=== PATIENT | female | born 1995 | race Caucasian/White ===

== ENCOUNTER 2023-01-24 16:24 | Emergency (ER) | payer BC ==
[2023-01-24 17:19] VITALS: TEMP 99.5
[2023-01-24] MEDS ORDERED: KETOROLAC 15 MG/ML 1 ML VIAL IVP STA (17:50)
[2023-01-24] MEDS ORDERED: SODIUM CHLORIDE 0.9% 1,000 ML IV STA ×2 (17:55)
--- NOTE | 2023-01-24 17:55 | ED ---
General Adult HPI - General Chief complaint: Dizziness Stated complaint: Chest pain,right arm pain Time Seen by Provider: 01/24/23 17:42 Source: patient Mode of arrival: ambulatory Limitations: no limitations - History of Present Illness Initial comments: This 27-year-old female presents with complaint of some right-sided chest pain. She was describes as sharp in nature. It is pleuritic as well. She states that it radiates down her right arm at times. She feels slightly short of breath at times. She states that her heart rate has been elevated at times as well. She does relate a history of atrial fibrillation. She states that she feels dizzy at times. There's been no fevers but she has felt chills at times. No leg pain or swelling. She denies any history of DVT or PE. She does have exercise- induced asthma otherwise denies any pulmonary problems in the past. No other history of cardiac disease. She denies any possibility of . No other complaints or modifying factors. - Related Data Allergies Allergy/AdvReac Type Severity Reaction Status Date / Time No Known Allergies Allergy Verified 01/24/23 17:06 Review of Systems ROS Statement: Those systems with pertinent positive or pertinent negative responses have been documented in the HPI. ROS Other: All systems not noted in ROS Statement are negative. Past Medical History Past Medical History: Atrial Fibrillation History of Any Multi-Drug Resistant Organisms: None Reported Additional Past Surgical History / Comment(s): ACL surgery. Past Psychological History: Anxiety, Depression Smoking Status: Never smoker Past Alcohol Use History: Rare Past Drug Use History: Marijuana General Exam - General Exam Comments Initial Comments: GENERAL: The patient is well nourished and well hydrated. VITAL SIGNS: Heart rate, blood pressure, respiratory rate reviewed as recorded in nurse's notes. EYES: Pupils are round and reactive. Extraocular movements are intact. No conjunctival / lid redness or swelling. ENT: No external evidence of injury, swelling, or ecchymosis. Airway is patent. Throat is clear. NECK: Nontender. No swelling or evidence of injury. No subcutaneous emphysema. Trachea is midline. No thyroid mass. HEART: Slightly tachycardic heart rate.. Good peripheral pulses. LUNGS/CHEST: Breath sounds clear and equal bilaterally. No rales, rhonchi, or wheezes. No ecchymosis, subcutaneous emphysema, or tenderness. ABDOMEN: Abdomen soft without tenderness. No palpable masses or organomegaly. No peritoneal signs. No abdominal wall swelling or ecchymosis. EXTREMITIES: No extremity tenderness. Normal muscle tone and function. No thoracolumbar tenderness. NEUROLOGIC: Sensation is grossly intact. Cranial nerve exam reveals face is symmetrical, tongue is midline, speech is clear. SKIN: No abrasions or ecchymosis is noted. No induration or masses noted. PSYCHIATRIC: Alert and oriented. Appropriate behavior and judgment. Limitations: no limitations Course Vital Signs 01/24/23 01/24/23 01/24/23 17:03 18:17 19:00 Temperature 99.5 F Pulse Rate 116 H 115 H 112 H Respiratory 18 18 12 Rate Blood Pressure 138/86 98/59 98/59 O2 Sat by Pulse 100 98 Oximetry 01/24/23 20:00 Temperature Pulse Rate 98 Respiratory 20 Rate Blood Pressure 100/66 O2 Sat by Pulse 98 Oximetry Medical Decision Making - Medical Decision Making The patient was seen and examined. All diagnostics are reviewed. An IV is established patient is placed on a monitor and storage bin tender. Slight tachycardia is noted with regular rhythm. The EKG shows a sinus tachycardia at a heart rate of 112. There is no acute ST or T wave changes noted per my interpretation. Intervals are normal. She does receive Toradol intravenously for the chest pain. The laboratory does show a slight leukocytosis but otherwise no acute abnormalities. The chest x-ray does not show any acute process per my interpretation. Addis pt. sent in by a medical professional or institution ([facility]ena[facility], BUILDING [employer]LLUMINATING ENGINEER, urgent care, hospital, or skilled nursing...) When possible be specific @ -[No] Did you speak to anyone other than the patient for history (EMS, parent, family, police, friend...)? What history was obtained from this source @ -[No] Did you review nursing and triage notes (agree or disagree)? Why? @ -[I reviewed and agree with nursing and triage notes] Were old charts reviewed (outside hosp., previous admission, EMS record, old E KG, old radiological studies, urgent care reports/EKG's, skilled nursing records)? Report findings @ -Old records are reviewed. Differential Diagnosis (chest pain, altered mental status, abdominal pain women, abdominal pain men, vaginal bleeding, weakness, fever, dyspnea, syncope, headache, dizziness, GI bleed, back pain, seizure, CVA, palpatations, mental health, musculoskeletal)? @ -Pleuritis, pneumothorax, pneumonia, viral infection, musculoskeletal chest pain. EKG interpreted by me (3pts min.). @ -[As above] X-rays interpreted by me (1pt min.). @ -As above CT interpreted by me (1pt min.). @ -[None done] U/S interpreted by me (1pt. min.). @ -[None done] What testing was considered but not performed or refused? (CT, X-rays, U/S, labs)? Why? @ -[None] What meds were considered but not given or refused? Why? @ -[None] Did you discuss the management of the patient with other professionals (professionals i.e. , PA, BUILDING ILLUMINATING ENGINEER, lab, RT, psych nurse, group social worker, automobile inspector, teacher, access control officer, behavioral health case manager)? Give summary @ -[No] Was smoking cessation discussed for >3mins.? @ -[No] Was critical care preformed (if so, how long)? @ -[No] Were there social determinants of health that impacted care today? How? (Homelessness, low income, unemployed, alcoholism, drug addiction, transportation, low edu. Level, literacy, decrease access to med. care, senior care, rehab)? @ -[No] Was there de-escalation of care discussed even if they declined (Discuss DNR or withdrawal of care, Hospice)? DNR status @ -[No] What co-morbidities impacted this encounter? (DM, HTN, Smoking, COPD, CAD, Cancer, CVA, ARF, Chemo, Hep., AIDS, mental health diagnosis, sleep apnea, morbid obesity)? @ -Atrial fibrillation Was patient admitted / discharged? Hospital course, mention meds given and route, prescriptions, significant lab abnormalities, going to OR and other pertinent info. @ -Discharge, please see above. Undiagnosed new problem with uncertain prognosis? @ -[No] Drug Therapy requiring intensive monitoring for toxicity (Heparin, Nitro, Insulin, Cardizem)? @ -[No] Were any procedures done? @ -[No] Diagnosis/symptom? @ -Chest pain, pleuritis Acute, or Chronic, or Acute on Chronic? @ -Acute Uncomplicated (without systemic symptoms) or Complicated (systemic symptoms)? @ -Uncomplicated Side effects of treatment? @ -[No] Exacerbation, Progression, or Severe Exacerbation? @ -[No] Poses a threat to life or bodily function? How? (Chest pain, USA, CT, pneumonia, PE, COPD, DKA, ARF, appy, cholecystitis, CVA, Diverticulitis, Homicidal, Suicidal, threat to staff... and all critical care pts) @ -[No]e viral studies are negative. It is felt as though her symptomatology may be related to pleuritis. She is feeling improved on recheck. Close follow- up with primary care is recommended. Return parameters are discussed. - Lab Data Result diagrams: 01/24/23 18:19 01/24/23 18:19 Lab Results 01/24/23 01/24/23 01/24/23 Range/Units 17:08 18:19 18:19 WBC 16.1 H (3.8-10.6) k/uL RBC 4.15 (3.80-5.40) m/uL Hgb 12.5 (11.4-16.0) gm/dL Hct 37.9 (34.0-46.0) % MCV 91.2 (80.0-100.0) fL MCH 30.2 (25.0-35.0) pg MCHC 33.1 (31.0-37.0) g/dL RDW 12.9 (11.5-15.5) % Plt Count 404 (150-450) k/uL MPV 7.2 Neutrophils % 83 % Lymphocytes % 10 % Monocytes % 4 % Eosinophils % 0 % Basophils % 0 % Neutrophils # 13.4 H (1.3-7.7) k/uL Lymphocytes # 1.5 (1.0-4.8) k/uL Monocytes # 0.6 (0-1.0) k/uL Eosinophils # 0.1 (0-0.7) k/uL Basophils # 0.1 (0-0.2) k/uL PT 10.0 (10.0-12.5) sec INR 0.9 (<1.2) APTT 25.9 (22.0-30.0) sec D-Dimer 0.41 (<0.60) mg/L FEU Sodium (137-145) mmol/L Potassium (3.5-5.1) mmol/L Chloride (98-107) mmol/L Carbon Dioxide (22-30) mmol/L Anion Gap mmol/L BUN (7-17) mg/dL Creatinine (0.52-1.04) mg/dL Est GFR (CKD-EPI)AfAm (>60 ml/min/1.73 sqM) Est GFR (CKD-EPI)NonAf (>60 ml/min/1.73 sqM) Glucose (74-99) mg/dL Calcium (8.4-10.2) mg/dL Total Bilirubin (0.2-1.3) mg/dL AST (14-36) U/L ALT (4-34) U/L Alkaline Phosphatase (38-126) U/L Troponin I (0.000-0.034) ng/mL Total Protein (6.3-8.2) g/dL Albumin (3.5-5.0) g/dL Influenza Type A (PCR) Not Detected (Not Detectd) Influenza Type B (PCR) Not Detected (Not Detectd) RSV (PCR) Not Detected (Not Detectd) SARS-CoV-2 (PCR) Not Detected (Not Detectd) 01/24/23 01/24/23 Range/Units 18:19 18:19 WBC (3.8-10.6) k/uL RBC (3.80-5.40) m/uL Hgb (11.4-16.0) gm/dL Hct (34.0-46.0) % MCV (80.0-100.0) fL MCH (25.0-35.0) pg MCHC (31.0-37.0) g/dL RDW (11.5-15.5) % Plt Count (150-450) k/uL MPV Neutrophils % % Lymphocytes % % Monocytes % % Eosinophils % % Basophils % % Neutrophils # (1.3-7.7) k/uL Lymphocytes # (1.0-4.8) k/uL Monocytes # (0-1.0) k/uL Eosinophils # (0-0.7) k/uL Basophils # (0-0.2) k/uL PT (10.0-12.5) sec INR (<1.2) APTT (22.0-30.0) sec D-Dimer (<0.60) mg/L FEU Sodium 137 (137-145) mmol/L Potassium 3.7 (3.5-5.1) mmol/L Chloride 100 (98-107) mmol/L Carbon Dioxide 26 (22-30) mmol/L Anion Gap 11 mmol/L BUN 10 (7-17) mg/dL Creatinine 0.74 (0.52-1.04) mg/dL Est GFR (CKD-EPI)AfAm >90 (>60 ml/min/1.73 sqM) Est GFR (CKD-EPI)NonAf >90 (>60 ml/min/1.73 sqM) Glucose 113 H (74-99) mg/dL Calcium 9.3 (8.4-10.2) mg/dL Total Bilirubin 0.6 (0.2-1.3) mg/dL AST 22 (14-36) U/L ALT 19 (4-34) U/L Alkaline Phosphatase 98 (38-126) U/L Troponin I <0.012 (0.000-0.034) ng/mL Total Protein 7.9 (6.3-8.2) g/dL Albumin 4.2 (3.5-5.0) g/dL Influenza Type A (PCR) (Not Detectd) Influenza Type B (PCR) (Not Detectd) RSV (PCR) (Not Detectd) SARS-CoV-2 (PCR) (Not Detectd) Disposition Clinical Impression: Pleuritic chest pain, Sinus tachycardia, Dizziness, Pleuritis, History of atrial fibrillation Disposition: HOME SELF-CARE Condition: Good Instructions (If sedation given, give patient instructions): Pleurisy (ED) Additional Instructions: Please use Tylenol and/or Motrin if needed for pain. Please follow-up with your warp tension tester in the next 2-4 days. Is patient prescribed a controlled substance at d/c from ED?: No Referrals: Mu Abebe MD [Primary Care Provider] - 1-2 days Time of Disposition: 20:29
--- NOTE | 2023-01-24 18:05 | XR ---
EXAMINATION TYPE: XR chest 2V DATE OF EXAM: 01/24/2023 5:57 PM CLINICAL INDICATION:Female, 27 years old with history of chest wall pain; [facility] COMPARISON: None TECHNIQUE: XR chest 2V Frontal and lateral views of the chest. FINDINGS: Lungs/Pleura: There is no evidence of pleural effusion, focal consolidation, or pneumothorax. Pulmonary vascularity: Unremarkable. Heart/mediastinum: Cardiomediastinal silhouette is unremarkable. Musculoskeletal: No acute osseous pathology. IMPRESSION: No acute cardiopulmonary disease/process.
[2023-01-24 18:28] LABS: Basophils # (A) 0.1 k/uL (0-0.2); Basophils % (A) 0 %; Eosinophils # (A) 0.1 k/uL (0-0.7); Eosinophils % (A) 0 %; HCT 37.9 % (34.0-46.0); HGB 12.5 gm/dL (11.4-16.0); Lymphocytes # (A) 1.5 k/uL (1.0-4.8); Lymphocytes % (A) 10 %; MCH 30.2 pg (25.0-35.0); MCHC 33.1 g/dL (31.0-37.0); MCV 91.2 fL (80.0-100.0); Mean Platelet Volume 7.2; Monocytes # (A) 0.6 k/uL (0-1.0); Monocytes % (A) 4 %; Neutrophils # (A) 13.4 k/uL (1.3-7.7); Neutrophils % (A) 83 %; Platelet Count 404 k/uL (150-450); RBC 4.15 m/uL (3.80-5.40); RDW 12.9 % (11.5-15.5); WBC 16.1 k/uL (3.8-10.6)
[2023-01-24 18:36] LABS: ALT 19 U/L (4-34); AST 22 U/L (14-36); African American GFR (CKD) >90 (>60 ml/min/1.73 sqM); Albumin 4.2 g/dL (3.5-5.0); Alkaline Phosphatase 98 U/L (38-126); Anion Gap 11 mmol/L; Blood Urea Nitrogen 10 mg/dL (7-17); Calcium 9.3 mg/dL (8.4-10.2); Carbon Dioxide 26 mmol/L (22-30); Chloride 100 mmol/L (98-107); Glucose 113 mg/dL (74-99); Non-African American GFR(CKD) >90 (>60 ml/min/1.73 sqM); Potassium 3.7 mmol/L (3.5-5.1); Sodium 137 mmol/L (137-145); Total Bilirubin 0.6 mg/dL (0.2-1.3); Total Protein 7.9 g/dL (6.3-8.2)
[2023-01-24 18:47] LABS: INR 0.9 (<1.2); Partial Thromboplastin Time 25.9 sec (22.0-30.0)
[2023-01-24 20:16] VITALS: BP 100/66; PULSE 98; RESP 20
== END 2023-01-24 20:47 | disposition home or self-care (01) ==
LOC: EC 16:24
DX: R09.1 Pleurisy (principal); R00.0 Tachycardia, unspecified; R42 Dizziness and giddiness; F12.90 Cannabis use, unspecified, uncomplicated; Z86.59 Personal history of other mental and behavioral disorders; Z20.822 Contact with and (suspected) exposure to COVID-19; Z86.79 Personal history of other diseases of the circulatory system
CPT/HCPCS: 36415; 93005; 85379; 80053; 84484; 85025; 85610; 85730; 87636; 71046; 99285; 96374; 96361 ×2; J1885

== ENCOUNTER → 2023-06-02 | Outpatient (CLI) | payer BC ==
--- NOTE | 2023-06-03 07:47 | US ---
EXAMINATION TYPE: US thyroid st tissue head/neck DATE OF EXAM: 06/02/2023 COMPARISON: NONE CLINICAL INDICATION: Female, 27 years old with history of R591 LYMPHADENOPATHY; EXAMINATION TYPE: US thyroid st tissue head/neck DATE OF EXAM: 06/02/2023 COMPARISON: NONE CLINICAL INDICATION: Female, 27 years old with history of R591 LYMPHADENOPATHY; Cat bite 1 month ago, swollen neck TECHNIQUE: Soft tissue neck FINDINGS: Multiple enlarged lymph nodes seen, largest = 1.8 x 1.8 x 1.2cm IMPRESSION: Multiple enlarged lymph nodes within the soft tissues the neck. CT of the neck would be useful for further evaluation.
--- NOTE | 2023-06-03 07:49 | US ---
EXAMINATION TYPE: US axilla LT DATE OF EXAM: 06/02/2023 COMPARISON: NONE CLINICAL INDICATION: Female, 27 years old with history of R591 LYMPHADENOPATHY; enlarged lymph nodes within axilla after cat bite TECHNIQUE: Soft tissue scan of nodes FINDINGS: Multiple enlarged nodes within within axilla, largest = 2.4 x 1.9 x 1.7cm IMPRESSION: Left axillary lymphadenopathy. Further workup is warranted to exclude neoplasm.
== END | disposition home or self-care (01) ==
LOC: RADUSWWP 15:36
PROVIDERS: ATTEND Family Medicine
DX: R59.0 Localized enlarged lymph nodes (principal)
CPT/HCPCS: 76536

== ENCOUNTER → 2023-06-09 | Outpatient (CLI) | payer BC ==
--- NOTE | 2023-06-10 22:00 | CT ---
"EXAMINATION TYPE: CT neck chest without con DATE OF EXAM: 06/09/2023 COMPARISON: None HISTORY: enlarged lymph nodes CT DLP: 1535 mGycm CONTRAST: None TECHNIQUE: Axial images at 3 mm thick sections. Reconstructed images in the coronal plane and sagitt al plane are reviewed. FINDINGS: Limited CT sections are obtained the lung apices. The lung apices appear clear. CT neck: The torus tubarius and fossa of Rosenmuller are normal. Manager Payroll spaces are normal. Para nasal sinuses and mastoid air cells are clear. Parotid glands appear normal and symmetrical. Submandibular glands, are normal. Parapharyngeal spac es are normal. There are multiple enlarged lymph nodes in the regions posterior to the sternocleidomastoid muscles b ilaterally. At the level marked by BB on the left posterior neck, palpable abnormality largest node m easures 1.7 cm. Multiple additional supraclavicular lymph nodes are present The hypopharynx appears within normal limits. Vocal cord level appear symmetrical. Thyroid as visualized is normal. Osseous structures are normal. IMPRESSION: 1. Extensive lymphadenopathy within the posterior triangles and supraclavicular regions bilaterally. EXAMINATION TYPE: CT neck chest without con DATE OF EXAM: 06/09/2023 COMPARISON: None HISTORY: enlarged lymph nodes CT DLP: 1535 mGycm, Automated exposure control for dose reduction was used. CONTRAST: None TECHNIQUE: Axial images were obtained at 5 mm thick sections. Reconstructed images are reviewed on [facility] computer in the coronal plane. FINDINGS: Portion of the thyroid visualized is normal. No suspicious lung nodules or focal infiltrates are present. There is extensive lymphadenopathy within the supraclavicular region. Extensive lymphadenopathies wi thin the mediastinum. Largest lymph node appears to lie at the level of the aortic arch measuring 3.8 cm. There are multiple additional enlarged nodes within the superior mediastinum pretracheal space s ubcarinal space and hilar regions bilaterally. Enlarged lymphadenopathy was within the left axilla. T he largest lymph node measures 2.2 cm in the left axilla. No retrocrural adenopathy is evident. No adenopathy within the superior abdomen within the field-of-v iew is evident. The ascending aorta diameter at the level of the main pulmonary artery is 2.8 cm. The main pulmonary artery diameter at the bifurcation is 2.[address] sections are obtained through the upper abdomen. Abdomen is essentially unremarkable. IMPRESSION: 1. Extensive lymphadenopathy within the supraclavicular regions bilaterally, through the mediastinum and hilar regions, and within the left axilla. Recommendations: 1. Recommend PET/CT and workup for lymphoma. A Yellow level critical message alert has been initiated for Mu Abebe MD via the [employer] | Critical Results System on 06/10/2023 9:57 PM. This message alert has been sent to Mu Abebe MD via the preferences provided by the clinician for the receipt of Radiology Critical Findings. [facility] [id number]."
== END | disposition home or self-care (01) ==
LOC: RADCTMAIN 10:39
PROVIDERS: ATTEND Family Medicine
DX: R59.0 Localized enlarged lymph nodes (principal)
CPT/HCPCS: 70490; 71250